=== PATIENT | male | born 1970 | race Caucasian/White ===

== ENCOUNTER 2021-08-23 00:45 | Inpatient (IN) | payer OTHER ==
[~2021-08-23] VITALS: Ht 167.6 cm; Wt 88.5 kg
[2021-08-23] MEDS ORDERED: ONDANSETRON 4MG INJ ONE (01:11)
[2021-08-23] MEDS ORDERED: ONDANSETRON 4MG INJ IVP ONE (01:30)
[2021-08-23] MEDS ORDERED: 0.9%NACL 1000ML 1,000 ML IV ONE ×2 (01:30→05:00)
[2021-08-23] MEDS ORDERED: 0.9%NACL 1000ML 2,000 ML IV ONE (01:30)
[2021-08-23 01:41] LABS: ALBUMIN 3.1 g/dL (3.5-5.0); BILIRUBIN,TOTAL 0.7 mg/dL (0.2-1.0); CREATININE 0.8 mg/dL (0.5-1.5); POTASSIUM 3.6 mmol/L (3.5-5.1); TOTAL PROTEIN, SERUM 7.7 g/dL (6.0-8.3)
[2021-08-23 02:10] LABS: BASOPHILS % (AUTO) 0.4 % (0.0-5.0); EOSINOPHILS % (AUTO) 0.1 % (0.0-8.0); HEMATOCRIT 39.9 % (42-54); LYMPHOCYTES % (AUTO) 11.4 % (21.0-51.0); MEAN CORPUSCULAR HEMOGLOBIN 30.7 pg (27.0-33.0); MEAN CORPUSCULAR HGB CONC 36.6 g/dL (32.0-36.0); MONOCYTES % (AUTO) 9.5 % (3.0-13.0); NEUTROPHILS % (AUTO) 77.9 % (40.0-77.0); PLATELET COUNT (AUTO) 244 K/uL (130-400); RED BLOOD CELL COUNT(AUTO) 4.75 MIL/uL (4.50-6.20); RED CELL DISTRIBUTION WIDTH 12.7 % (11.0-15.5); WHITE BLOOD COUNT (AUTO) 21.4 K/uL (4.8-10.8)
[2021-08-23 02:21] LABS: ABG BASE EXCESS -4.6 mmol/L (-2.0-3.0); ABG HCO3 17.6 mmol/L (21.0-28.0); ABG OXYGEN SATURATION 97.7 % (95.0-99.0); ABG PCO2 26 mmHg (35-48)
[2021-08-23 03:12] LABS: MAGNESIUM 2.1 mg/dL (1.80-2.40); PHOSPHORUS 2.4 mg/dL (2.5-4.9)
[2021-08-23] MEDS ORDERED: INSULIN HUMULIN R 100 UNIT/ML 3ML SQ ONE (05:00)
[2021-08-23] MEDS ORDERED: 0.9%NACL 1000ML 1,914 ML IV ONE (05:00)
[2021-08-23] MEDS ORDERED: ONDANSETRON 4MG INJ IV PRN (05:00)
[2021-08-23] MEDS ORDERED: MORPHINE 4 MG SYG IV PRN (05:00)
[2021-08-23] MEDS ORDERED: HYDROCODONE/ACETAMINOPHEN 5/325 MG TAB PO PRN (05:00)
[2021-08-23] MEDS: LEVOFLOXACIN 500 MG/D5W 100 ML 100 ML IV SCH (06:00)
[2021-08-23 06:18] LABS: INR 1.02 (0.85-1.15); PROTHROMBIN TIME 11.1 SEC (9.6-11.6)
[2021-08-23 06:19] LABS: PARTIAL THROMBOPLASTIN TIME 28.6 SEC (26.3-35.5)
[2021-08-23 07:07] LABS: APPEARANCE,URINE CLEAR (CLEAR); BILIRUBIN,URINE NEGATIVE (NEGATIVE); COLOR,URINE YELLOW (YELLOW); GLUCOSE, URINE (UA) >=1000 mg/dL (NEGATIVE); KETONES,URINE >=80 mg/dL (NEGATIVE); LEUKOCYTE ESTERASE ,URINE NEGATIVE (NEGATIVE); NITRATE,URINE NEGATIVE (NEGATIVE); OCCULT BLOOD,URINE SMALL (NEGATIVE); PROTEIN,URINE NEGATIVE (NEGATIVE); UROBILINOGEN,URINE 0.2 mg/dL (0.2-1.0)
[2021-08-23] MEDS: INSULIN HUMULIN R 100 UNIT/ML 3ML SQ SCH ×4 (07:30→21:27)
[2021-08-23 07:44] LABS: BACTERIA,URINE Rare /HPF (None Seen); RBC,URINE 0-1 /HPF (0-1); WBC,URINE 0-1 /HPF (0-1)
[2021-08-23 07:45] LABS: SQUAMOUS EPITHELIAL CELL,UR None Seen /HPF (0-2)
[2021-08-23 09:23] VITALS: BP 156/90
[2021-08-23 11:34] VITALS: BP 138/92
[2021-08-23] MEDS: METRONIDAZOLE 500 MG TABLET PO SCH ×3 (11:57→20:46)
[2021-08-23] MEDS: FAMOTIDINE 20MG VIAL IV SCH ×2 (11:57→20:46)
[2021-08-23] MEDS: ENOXAPARIN SODIUM 40 MG/0.4 ML SYRINGE SQ SCH (11:58)
[2021-08-23] MEDS: LACTATED RINGERS 1000ML 1,000 ML IV SCH (12:02)
[2021-08-23 12:42] LABS: CREATININE 0.6 mg/dL (0.5-1.5); POTASSIUM 3.4 mmol/L (3.5-5.1)
[2021-08-23 16:00] VITALS: BP 156/88
[2021-08-23 18:27] LABS: CREATININE 0.7 mg/dL (0.5-1.5); POTASSIUM 3.6 mmol/L (3.5-5.1)
[2021-08-23 21:53] VITALS: BP 139/87
[2021-08-24 00:40] LABS: CREATININE 0.5 mg/dL (0.5-1.5)
[2021-08-24 00:47] LABS: POTASSIUM 2.9 mmol/L (3.5-5.1)
[2021-08-24] MEDS ORDERED: KCL 20 MEQ ERTAB PO ONE ×2 (01:18→01:30)
[2021-08-24] MEDS: LACTATED RINGERS 1000ML 1,000 ML IV SCH ×3 (01:22→20:11)
[2021-08-24] MEDS ORDERED: POTASSIUM CHLORIDE 20MEQ/100ML 100 ML IV PRN ×2 (01:30)
[2021-08-24] MEDS ORDERED: LIDOCAINE HCL-MPF 1% 2ML VIAL IV PRN (01:30)
[2021-08-24] MEDS ORDERED: POTASSIUM CHLORIDE 10% ELIXIR 20 MEQ/15 ML UDCUP PO PRN (01:30)
[2021-08-24] MEDS ORDERED: KCL 20 MEQ ERTAB PO SCH (01:30)
[2021-08-24 01:38] VITALS: BP_SYST 128; BP_SYST 136; BP_DIAS 82; BP_DIAS 99
[2021-08-24] MEDS: LEVOFLOXACIN 500 MG/D5W 100 ML 100 ML IV SCH (04:21)
[2021-08-24 04:28] LABS: BASOPHILS % (AUTO) 0.4 % (0.0-5.0); EOSINOPHILS % (AUTO) 0.7 % (0.0-8.0); HEMATOCRIT 31.6 % (42-54); MEAN CORPUSCULAR HEMOGLOBIN 30.7 pg (27.0-33.0); MEAN CORPUSCULAR HGB CONC 35.1 g/dL (32.0-36.0); MEAN CORPUSCULAR VOLUME 87.3 fL (79-99); NEUTROPHILS % (AUTO) 69.4 % (40.0-77.0); PLATELET COUNT (AUTO) 127 K/uL (130-400); RED BLOOD CELL COUNT(AUTO) 3.62 MIL/uL (4.50-6.20); RED CELL DISTRIBUTION WIDTH 12.8 % (11.0-15.5); WHITE BLOOD COUNT (AUTO) 9.6 K/uL (4.8-10.8)
[2021-08-24 04:48] LABS: CREATININE 0.5 mg/dL (0.5-1.5); MAGNESIUM 1.8 mg/dL (1.80-2.40); PHOSPHORUS 2.1 mg/dL (2.5-4.9); POTASSIUM 3.4 mmol/L (3.5-5.1)
[2021-08-24 05:23] VITALS: BP 130/72
[2021-08-24] MEDS: KCL 20 MEQ ERTAB PO PRN ×2 (05:35→09:38)
[2021-08-24] MEDS: INSULIN HUMULIN R 100 UNIT/ML 3ML SQ SCH ×4 (06:09→20:11)
[2021-08-24 08:38] VITALS: BP_SYST 126; BP_SYST 128; BP_DIAS 73; BP_DIAS 75
[2021-08-24] MEDS: METRONIDAZOLE 500 MG TABLET PO SCH ×3 (09:34→20:10)
[2021-08-24] MEDS: FAMOTIDINE 20MG VIAL IV SCH ×2 (09:34→20:10)
[2021-08-24] MEDS: ENOXAPARIN SODIUM 40 MG/0.4 ML SYRINGE SQ SCH (09:38)
[2021-08-24 11:53] LABS: CREATININE 0.6 mg/dL (0.5-1.5); POTASSIUM 3.6 mmol/L (3.5-5.1)
[2021-08-24 13:37] VITALS: BP 138/82
[2021-08-24 16:30] VITALS: BP 136/89
[2021-08-24 20:16] VITALS: BP 140/96
[2021-08-25 00:09] VITALS: BP 164/88
[2021-08-25 00:40] VITALS: BP 157/87
[2021-08-25] MEDS: LEVOFLOXACIN 500 MG/D5W 100 ML 100 ML IV SCH (04:16)
[2021-08-25 04:27] VITALS: BP 136/87
[2021-08-25] MEDS: LACTATED RINGERS 1000ML 1,000 ML IV SCH ×2 (04:34→10:20)
[2021-08-25 04:49] LABS: POTASSIUM 3.3 mmol/L (3.5-5.1)
[2021-08-25] MEDS: KCL 20 MEQ ERTAB PO PRN ×2 (05:46→08:58)
[2021-08-25] MEDS: INSULIN HUMULIN R 100 UNIT/ML 3ML SQ SCH ×2 (05:51→12:09)
[2021-08-25 08:06] VITALS: BP 119/73
[2021-08-25] MEDS: FAMOTIDINE 20MG VIAL IV SCH (08:56)
[2021-08-25] MEDS: METRONIDAZOLE 500 MG TABLET PO SCH ×2 (08:57→13:34)
[2021-08-25] MEDS: ENOXAPARIN SODIUM 40 MG/0.4 ML SYRINGE SQ SCH (08:57)
[2021-08-25 09:20] LABS: CREATININE 0.5 mg/dL (0.5-1.5)
[2021-08-25 09:32] LABS: HEMOGLOBIN A1C 11.9 % (4.0-6.0)
[2021-08-25] MEDS ORDERED: METF-444 PO (10:04)
[2021-08-25 12:06] VITALS: BP 120/75
[2021-08-25] MEDS ORDERED: KCL 20 MEQ ERTAB PO SCH (12:30)
== END 2021-08-25 14:25 | disposition home or self-care (01) | DRG 392 ==
LOC: EDH 00:45 → EDHIP 00:46 → 4DH 09:28
PROVIDERS: ADMIT Internal Medicine; ATTEND Internal Medicine
DX: K52.9 Noninfective gastroenteritis and colitis, unspecified (principal); E87.1 Hypo-osmolality and hyponatremia; E11.65 Type 2 diabetes mellitus with hyperglycemia; F41.9 Anxiety disorder, unspecified; K20.90 Esophagitis, unspecified without bleeding; K76.0 Fatty (change of) liver, not elsewhere classified; Z87.442 Personal history of urinary calculi
CPT/HCPCS: 36415; 36600; 71045; 74176; 80048; 80053; 81001; 82803; 82948; 83036; 83605; 83690; 83735; 84100; 84132; 84145; 84484; 85025; 85610; 85730; 87040; 87177; 93005; G0378; J1650; J1815; J1956; J2405; J3490; J7030; J7120

== ENCOUNTER 2023-06-22 12:06 | Emergency (ER) | payer MEDICAID ==
[~2023-06-22] VITALS: Ht 167.6 cm; Wt 86.2 kg
[~2023-06-22 12:06] MED LIST: METF-444 PO
[2023-06-22] MEDS ORDERED: ACETAMINOPHEN WITH CODEINE 1 TAB TAB PO ONE (14:00)
[2023-06-22 14:07] LABS: BASOPHILS # (AUTO) 0.05 K/uL (0.00-0.20); BASOPHILS % (AUTO) 0.3 % (0.0-5.0); EOSINOPHILS # (AUTO) 0.19 K/uL (0.00-0.70); EOSINOPHILS % (AUTO) 1.2 % (0.0-8.0); HEMATOCRIT 40.2 % (42-54); IMMATURE GRANULOCYTE ABSOLUTE 0.06 K/uL (0-1); LYMPHOCYTES # (AUTO) 1.9 K/uL (1.0-4.8); MEAN CORPUSCULAR HEMOGLOBIN 31.3 pg (27.0-33.0); MEAN CORPUSCULAR HGB CONC 35.6 g/dL (32.0-36.0); MONOCYTES # (AUTO) 1.2 K/uL (0.1-1.0); MONOCYTES % (AUTO) 7.2 % (3.0-13.0); NEUTROPHILS # (AUTO) 12.6 K/uL (1.8-7.7); NEUTROPHILS % (AUTO) 78.9 % (40.0-77.0); PLATELET COUNT (AUTO) 189 K/uL (130-400); RED BLOOD CELL COUNT(AUTO) 4.57 MIL/uL (4.50-6.20); RED CELL DISTRIBUTION WIDTH 12.7 % (11.0-15.5)
[2023-06-22 14:20] LABS: CREATININE 0.8 mg/dL (0.5-1.5); POTASSIUM 4.1 mmol/L (3.5-5.1)
[2023-06-22 14:25] LABS: ALBUMIN 3.6 g/dL (3.5-5.0); BILIRUBIN,TOTAL 0.8 mg/dL (0.2-1.0); TOTAL PROTEIN, SERUM 8.1 g/dL (6.0-8.3)
[2023-06-22] MEDS ORDERED: METF-444 PO (14:29)
[2023-06-22] MEDS ORDERED: CEPH500B PO (14:29)
[2023-06-22] MEDS ORDERED: SULF1TAB42 PO (14:29)
[2023-06-22] MEDS ORDERED: INSULIN HUMULIN R 100 UNIT/ML 3ML SQ ONE (14:30)
[2023-06-22 14:41] LABS: APPEARANCE,URINE CLEAR (CLEAR); BILIRUBIN,URINE NEGATIVE (NEGATIVE); COLOR,URINE LIGHT-YELLOW (YELLOW); GLUCOSE, URINE (UA) >=1000 mg/dL (NEGATIVE); KETONES,URINE 20 mg/dL (NEGATIVE); LEUKOCYTE ESTERASE ,URINE NEGATIVE Leu/uL (NEGATIVE); NITRATE,URINE NEGATIVE (NEGATIVE); OCCULT BLOOD,URINE NEGATIVE (NEGATIVE); PH,URINE 5.5 (5.0-8.0); PROTEIN,URINE 50 mg/dL (NEGATIVE); UROBILINOGEN,URINE 0.2 mg/dL (0.2-1.0)
[2023-06-22 14:43] LABS: ADD UA MICROSCOPIC YES
[2023-06-22 14:58] LABS: RBC,URINE 0-1 /HPF (0-1); WBC,URINE 0-1 /HPF (0-1)
[2023-06-22 16:06] VITALS: BP 144/90; PULSE 78; RESP 18; O2SAT 97
== END 2023-06-22 16:09 | disposition home or self-care (01) ==
LOC: EDH 12:06
DX: L73.9 Follicular disorder, unspecified (principal); L02.811 Cutaneous abscess of head [any part, except face]; L03.113 Cellulitis of right upper limb; D72.829 Elevated white blood cell count, unspecified; I10 Essential (primary) hypertension; E11.9 Type 2 diabetes mellitus without complications; Z79.84 Long term (current) use of oral hypoglycemic drugs
CPT/HCPCS: 99283; 80053; 85025; 82948; 83605; 81001; 36415; 96372; J1815